=== PATIENT | female | born 1935 | race Caucasian/White ===

== ENCOUNTER 2019-08-25 22:05 | Observation (INO) ==
[2019-08-25 23:07] LABS: Basophils % 0.3 %; Eosinophils % 0.1 %; Hemoglobin 12.1 g/dL (11.5-15.4); Immature Granulocytes % 0.3 % (0-4); Lymphocytes # 0.9 K/mcL (0.6-4.6); Lymphocytes % 7.5 %; Mean Corpuscular HGB Conc 32.7 g/dL (31.6-35.5); Mean Corpuscular Hemoglobin 28.4 pg (28.0-33.3); Mean Corpuscular Volume 86.9 fL (83.0-100.0); Mean Platelet Volume 9.5 fL (9.4-12.4); Monocytes # 0.9 K/mcL (0.0-1.3); Monocytes % 8.1 %; Neutrophils # 9.6 K/mcL (1.6-8.9); Platelet Count 275 K/mcL (140-400); Red Blood Count 4.26 M/mcL (3.82-4.97); Red Cell Distribution Width 12.8 % (11.5-14.5); Segmented Neutrophils % 83.7 %; White Blood Count 11.5 K/mcL (4.3-11.1)
[2019-08-25 23:18] LABS: INR 1.2; Prothrombin Time 13.8 Seconds (9.4-12.1)
[2019-08-25 23:20] LABS: Activated Partial Thrombo Time 29.8 Seconds (26.0-36.0)
[2019-08-25 23:25] LABS: BUN/Creatinine Ratio 16 (6-26); Blood Urea Nitrogen 14 mg/dL (8-23); Calcium 9.4 mg/dL (8.6-10.3); Carbon Dioxide 24 mEq/L (23-29); Chloride 96 mEq/L (98-107); Glucose 140 mg/dL (70-105); Osmolality,Calculated 275 (280-300); Potassium 3.9 mEq/L (3.5-5.1); Sodium 131 mEq/L (136-145); eGFR For African Americans > 60 (> 60); eGFR For Non-African Americans > 60 (> 60)
[2019-08-25] MEDS ORDERED: *HR* OxyCODONE Immed Rel 5 MG TABLET PO ONE (23:45)
[2019-08-25] MEDS ORDERED: predniSONE 20 MG TABLET PO ONE (23:45)
[2019-08-25] MEDS ORDERED: Ibuprofen 600 MG TABLET PO ONE (23:46)
[2019-08-26] MEDS ORDERED: D5% in Water 1,000 ML IVC PRN (00:29)
[2019-08-26] MEDS ORDERED: Dextrose Gel 15 GM/37.5 ML TUBE PO PRN ×2 (00:29)
[2019-08-26] MEDS ORDERED: *HR* Dextrose 50 % in Water (Syg) 50 ML SYRINGE IVP PRN (00:29)
[2019-08-26] MEDS ORDERED: *HR* OxyCODONE Immed Rel 5 MG TABLET PO PRN (00:29)
[2019-08-26] MEDS ORDERED: Ibuprofen 400 MG TABLET PO PRN (00:29)
[2019-08-26] MEDS ORDERED: Naloxone 0.4 MG/ML INJ IVP PRN (00:29)
[2019-08-26] MEDS: Insulin LISPRO 300 UNITS/3 ML VIAL SQ SCH ×3 (00:53→14:39)
[2019-08-26] MEDS: amLODIPine 5 MG TABLET PO SCH (08:33)
[2019-08-26] MEDS: *HR* Metformin 500 MG TABLET PO SCH ×2 (08:34→16:51)
[2019-08-26 09:43] LABS: Estimated Average Glucose 131 mg/dl
[2019-08-26] MEDS: *HR* Rivaroxaban 15 MG TABLET PO SCH ×2 (12:54→21:00)
[2019-08-26 16:39] LABS: Uric Acid 5.7 mg/dL (2.3-7.6)
[2019-08-26 16:52] LABS: Thyroid Stimulating Hormone 1.968 mcIU/mL (0.340-5.600)
[2019-08-27 06:45] VITALS: BP 147/82
[2019-08-27] MEDS ORDERED: *HR* Dextrose 50 % in Water (Vial) 50 ML VIAL IVP PRN (08:30)
[2019-08-27] MEDS: *HR* Metformin 500 MG TABLET PO SCH (08:48)
[2019-08-27] MEDS: *HR* Rivaroxaban 15 MG TABLET PO SCH (08:48)
[2019-08-27] MEDS: amLODIPine 5 MG TABLET PO SCH (08:48)
[2019-08-30 23:48] LABS: FACV Specimen WHOLE BLOOD
[2019-08-31 00:21] LABS: Prothrombin G20210A Specimen WHOLE BLOOD
[2019-08-31 08:07] LABS: Prothrombin G20210A Mut Result NEGATIVE
[2019-08-31 08:11] LABS: Fac V Leiden R506Q Mut Result HETEROZYGOUS
[2019-09-01 13:15] LABS: APTT (LE Anticoag) 77 sec (32-48); Diluted Russell VVT Confirm NEGATIVE ratio (Negative); Diluted Russell Viper Venom 92 sec (33-44); LE Coag APTT Mixing 57 sec (32-48); LE Dil. Russell Viper Mix 1:1 73 sec (33-44); LE Hexagonal Phospholipid Neut POSITIVE (Negative); PT (LE-Anticoag) 27.6 sec (12.0-15.5); Thrombin Time 15.8 sec (14.7-19.5)
== END 2019-08-27 13:30 | disposition home or self-care (01) ==
LOC: INPPIK 22:05 → EMEROOPIK 22:05 → INPPIK 08-26 00:25
PROVIDERS: ADMIT Internal Medicine; ATTEND Internal Medicine